=== PATIENT | male | born 1975 | race Caucasian/White ===

== ENCOUNTER 2018-02-14 21:37 | Emergency (ER) | payer SELFPAY ==
[~2018-02-14] VITALS: Ht 180.3 cm; Wt 97.7 kg
[2018-02-14 21:44] VITALS: BP 150/72; PULSE 100; TEMP 100
[2018-02-14] MEDS ORDERED: ZITHROMAX 250M250 MG PO (22:31)
== END 2018-02-14 22:47 | disposition home or self-care (01) ==
LOC: COL.ER 21:37
DX: J40 Bronchitis, not specified as acute or chronic (principal); F17.210 Nicotine dependence, cigarettes, uncomplicated